=== PATIENT | male | born 1950 | race Caucasian/White ===

== ENCOUNTER → 2021-10-26 | Outpatient (CLI) | payer MEDICARE, BC, OTHER ==
[~2021-10-26] MED LIST: ASPI-310 PO; ATOR1TAB19 PO; BRIM0.2S13 OU; GLIP5TAB20 PO; LEVOTAB10 PO; LISI20TA37 PO; METO1TAB7 PO; TIOT18INH INH; TRAV04OPD OU
[2021-10-26 14:31] LABS: CALCIUM LEVEL 8.9 MG/DL (8.8-10.2); CREATININE FOR GFR 1.28 MG/DL (0.70-1.30); GLOMERULAR FILTRATION RATE 58.6 (>42); POTASSIUM SERUM 5.2 MEQ/L (3.5-5.1)
== END ==
LOC: M PLALAB 11:18
PROVIDERS: ATTEND Physician Assistant
DX: N28.89 Other specified disorders of kidney and ureter (principal)

== ENCOUNTER → 2021-11-16 | Outpatient (CLI) | payer MEDICARE, BC, OTHER ==
[~2021-11-16] MED LIST changes: +ISOVUE-370 76% 100ML VIAL ONE
== END ==
LOC: M PLAIMG 11:09
PROVIDERS: ATTEND Physician Assistant
DX: N28.89 Other specified disorders of kidney and ureter (principal)
CPT/HCPCS: 74160; Q9967

== ENCOUNTER → 2021-11-23 | Outpatient (CLI) | payer MEDICARE, BC, OTHER | LOC: M PLAIMG 09:07 | PROVIDERS: ATTEND Physician Assistant | DX: N28.1 Cyst of kidney, acquired (principal) ==

== ENCOUNTER → 2022-10-28 | Outpatient (CLI) | payer MEDICARE, BC, OTHER ==
[~2022-10-28] MED LIST changes: -ISOVUE-370 76% 100ML VIAL ONE
== END ==
LOC: M PLAIMG 09:52
PROVIDERS: ATTEND Physician Assistant
DX: F17.218 Nicotine dependence, cigarettes, with other nicotine-induced disorders (principal); J43.9 Emphysema, unspecified

== ENCOUNTER → 2023-12-30 | Outpatient (CLI) | payer MEDICARE, BC | LOC: M RAD 10:21 | PROVIDERS: ATTEND Physician Assistant | DX: Z12.2 Encounter for screening for malignant neoplasm of respiratory organs (principal); F17.218 Nicotine dependence, cigarettes, with other nicotine-induced disorders ==

== ENCOUNTER → 2024-07-12 | Outpatient (CLI) | payer MEDICARE, BC | LOC: M PLAIMG 09:01 | PROVIDERS: ATTEND Physician Assistant | DX: J98.11 Atelectasis (principal); J43.9 Emphysema, unspecified; J84.10 Pulmonary fibrosis, unspecified; N28.9 Disorder of kidney and ureter, unspecified ==